=== PATIENT | female | born 1950 | race Caucasian/White ===

== ENCOUNTER → 2024-02-25 | Outpatient (REF) | payer MEDICARE ==
[2024-02-25 19:34] LABS: APPEARANCE, URINE CLEAR (CLEAR); BACTERIA, URINE AUTO NEGATIVE (NEGATIVE); BILIRUBIN, URINE AUTO NEGATIVE (NEGATIVE); BLOOD, URINE BLOOD 1+ (NEGATIVE); COLOR, URINE STRAW (YELLOW); GLUCOSE, URINE (UA) AUTO NEGATIVE (NEGATIVE); KETONE, URINE AUTO NEGATIVE (NEGATIVE); LEUKOCYTE ESTERASE, URINE AUTO NEGATIVE (NEGATIVE); MUCUS, URINE SMALL (NEGATIVE); NITRITE, URINE AUTO NEGATIVE (NEGATIVE); PROTEIN, URINE AUTO NEGATIVE (NEGATIVE); RBC, URINE AUTO 11 /HPF (0-3); SPECIFIC GRAVITY URINE AUTO 1.005 (1.002-1.035); SQUAMOUS EPITHELIAL CELL UR AU 0 /HPF (0-6); UROBILINOGEN, URINE AUTO 0.2 mg/dL (0.0-2.0); WBC, URINE AUTO 1 /HPF (0-3)
== END ==
LOC: M SMT 17:08
PROVIDERS: ATTEND Urology
DX: R31.29 Other microscopic hematuria (principal)

== ENCOUNTER 2024-10-28 09:49 | Day surgery (SDC) | payer MEDICARE ==
[~2024-10-28] VITALS: Ht 157.5 cm; Wt 77.1 kg
[~2024-10-28 09:49] MED LIST: ALBU8.5H; ATEN25TA PO; HYDR-3490 PO; LIDOCAINE 2% 100 MG/5 ML SDV (FOR ANES.) As Ordered ONE; LOSA50TA28 PO; MONT10TA97 PO; MULT-90 PO; ONDANSETRON 4MG 2ML VIAL As Ordered ONE; POTA-151 PO; SIMV20TA22 PO; SYMB16INH INH; dexAMETHasone 4 MG/ML 1 ML VIAL As Ordered ONE
[2024-10-28] MEDS ORDERED: LR 1,000 ML IV SCH (10:55)
[2024-10-28] MEDS ORDERED: ISOVUE-300 61% 100 ML VIAL As Ordered ONE (11:31)
[2024-10-28] MEDS: ceFAZolin SOD 2 GM IV ONCE IV ONE (12:03)
[2024-10-28] MEDS ORDERED: ACETAMINOPHEN 1000MG/100ML IV BAG As Ordered ONE (12:04)
[2024-10-28] MEDS ORDERED: PYRI1TAB5 PO (13:07)
[2024-10-28] MEDS ORDERED: OXYB5TAB14 PO (13:07)
[2024-10-28] MEDS ORDERED: MACR100C43 PO (13:07)
[2024-10-28] MEDS ORDERED: MORPHINE 2 MG/ML 1 ML VIAL IV PRN (13:10)
[2024-10-28] MEDS ORDERED: ONDANSETRON 4MG 2ML VIAL IV PRN (13:10)
[2024-10-28 13:45] VITALS: BP 123/60; TEMP 97.2; O2SAT 96
== END 2024-10-28 14:20 | disposition home or self-care (01) ==
LOC: M SDC 09:49
PROVIDERS: ATTEND Urology
DX: N13.2 Hydronephrosis with renal and ureteral calculous obstruction (principal); I10 Essential (primary) hypertension; J45.909 Unspecified asthma, uncomplicated; E78.00 Pure hypercholesterolemia, unspecified; Z79.899 Other long term (current) drug therapy; Z79.51 Long term (current) use of inhaled steroids; Z85.828 Personal history of other malignant neoplasm of skin
CPT/HCPCS: 52356; 76000; 82365; C1769; C1894; C2617; J0131; J0690; J1100; J2405; J3010; Q9967